=== PATIENT | female | born 1970 | race Caucasian/White ===

== ENCOUNTER 2018-07-17 16:33 | Emergency (ER) | payer SELFPAY ==
[2018-07-17] MEDS ORDERED: HYDROXYZINE HYDROCHLORIDE 25 MG/ML SOL IM ONE (16:56)
[2018-07-17] MEDS ORDERED: SOLUMEDROL 125 MG/2 ML 125 MG/2 ML PDS IV ONE (16:56)
[2018-07-17] MEDS ORDERED: RANITIDINE HCL IV ONE (16:58)
[2018-07-17] MEDS ORDERED: SODIUM CHLORIDE 0.9% IV ONE (16:58)
[2018-07-17] MEDS: SODIUM CHLORIDE 0.9% FLUSH 10 ML SOL IV PRN ×2 (17:00→17:10)
[2018-07-17] MEDS ORDERED: LORAZEPAM 2 MG/ML 10ML MDV 2 MG/ML VIAL IV ONE (17:10)
[2018-07-17] MEDS ORDERED: RANITIDINE HYDROCHLORIDE 25 MG/ML SOL ONE (17:12)
[2018-07-17] MEDS ORDERED: SOLUMEDROL 125 MG/2 ML 125 MG/2 ML PDS ONE (17:12)
[2018-07-17] MEDS ORDERED: LORAZEPAM 2 MG/ML SOL ONE (17:13)
[2018-07-17 17:55] VITALS: RESP 18
[2018-07-17] MEDS ORDERED: HYDRALAZINE HYDROCHLORIDE 20 MG/ML SOL IV ONE (18:13)
[2018-07-17] MEDS ORDERED: HYDRALAZINE HYDROCHLORIDE 20 MG/ML SOL ONE (18:15)
[2018-07-17 19:25] VITALS: TEMP 96.3
[2018-07-17 19:42] VITALS: BP 158/121; PULSE 101; O2SAT 93
== END 2018-07-17 19:13 | disposition home or self-care (01) | DRG 918 ==
LOC: ED 16:33
DX: T50.Z95A Adverse effect of other vaccines and biological substances, initial encounter (principal)
CPT/HCPCS: 96374; 96375; 99283; 99285; J0360; J2060; J2780; J2930

== ENCOUNTER 2018-10-15 21:48 | Emergency (ER) | payer BC ==
[2018-10-15] MEDS ORDERED: HYDRALAZINE HYDROCHLORIDE 20 MG/ML SOL IV ONE (22:07)
[2018-10-15] MEDS ORDERED: SODIUM CHLORIDE 0.9% 1000ML 1,000 ML IV SCH (22:15)
[2018-10-15] MEDS ORDERED: HYDRALAZINE HYDROCHLORIDE 20 MG/ML SOL ONE (22:32)
[2018-10-15 22:37] LABS: BASOPHILS % (AUTO) 1 % (0-3); EOSINOPHILS % (AUTO) 4 % (0-9); HEMATOCRIT 48 % (35-47); HEMOGLOBIN 16.2 gm/dl (12.0-15.5); LYMPHOCYTES % (AUTO) 52.5 % (10-50); MEAN CORPUSCULAR HEMOGLOBIN 33.4 pg (27.0-32.0); MEAN CORPUSCULAR HGB CONC 33.6 gm/dl (32.0-36.0); MONOCYTES % (AUTO) 5.5 % (0-12); NEUTROPHILS % (AUTO) 36.6 % (37-80)
[2018-10-15 22:38] LABS: MEAN CORPUSCULAR VOLUME 99 fL (81-99)
[2018-10-15 22:39] VITALS: TEMP 97.6
[2018-10-15 22:49] LABS: ALBUMIN 3.8 gm/dl (3.4-5.0); ALKALINE PHOSPHATASE 87 IU/L (46-116); ALT 121 IU/L (14-63); AST 82 IU/L (15-37); BILIRUBIN,TOTAL 0.2 mg/dl (0.2-1.0); BLOOD UREA NITROGEN 11 mg/dl (7-18); CALCIUM 9.2 mg/dl (8.5-10.1); CARBON DIOXIDE 26.1 mEq/L (21-32); CHLORIDE 106 mMol/L (98-107); CREATININE 1.01 mg/dl (0.60-1.00); GLUCOSE 94 mg/dl (74-106); TROP I < 0.017 ng/ml (0.000-0.056)
[2018-10-15 23:52] VITALS: O2SAT 93
[2018-10-16 00:53] VITALS: BP 169/98; PULSE 98; RESP 18
== END 2018-10-16 00:05 | disposition home or self-care (01) ==
LOC: ED 21:48
DX: I10 Essential (primary) hypertension (principal); R42 Dizziness and giddiness; R07.9 Chest pain, unspecified
CPT/HCPCS: 80053; 84484; 85025; 93005; 96365; 96374; 99283; 99285; J0360